=== PATIENT | female | born 1935 | race Caucasian/White ===

== ENCOUNTER 2019-12-21 11:22 | Observation (INO) | payer MEDICARE ==
[~2019-12-21] VITALS: Ht 170.2 cm; Wt 96.2 kg
[~2019-12-21 11:22] MED LIST: DICLOFENAC POTA50 MG PO; GLIMEPIRIDE4 MG PO; LASIX40 MG PO; LEVOTHYROXINE PO; MECLIZINE HCL25 MG PO; METFORMIN PO; METOPROLOL TART25 MG PO; MISOPROSTOL200 MCG PO; NEXIUM40 MG PO; PIOGLITAZONE45 MG PO; RAMIPRIL10 MG PO; SIMVASTATIN40 MG PO; ULTRAM50 MG PO; ZETIA10 MG PO
--- NOTE | 2019-12-21 12:52 | Diagnostic Imaging Report ---
Chest, 1 view, 12/21/2019. History: Chest pain. Comparison: None available. Findings: The cardiomediastinal silhouette and pulmonary vasculature are within normal limits for a portable exam. There is no focal consolidation or pleural effusion. A calcified granuloma is present in the right upper lobe. There are no acute osseous or soft tissue abnormalities. Impression: No acute cardiopulmonary abnormality. Signed by: Matthew Lema on 12/21/2019 12:49 PM
[2019-12-21 13:14] LABS: BASOPHILS # (AUTO) 0.1 (0.0-0.1); BASOPHILS % 0.7 % (0.0-1.0); EOSINOPHILS # (AUTO) 0.1 (0.0-0.4); EOSINOPHILS % 1.6 % (0.0-6.0); HEMATOCRIT 42.9 % (34.2-44.1); LYMPHOCYTES # (AUTO) 1.4 (1.0-3.2); LYMPHOCYTES % 20.1 % (18.0-39.1); MEAN CORPUSCULAR HEMOGLOBIN 26.2 pg (28-32); MEAN CORPUSCULAR HGB CONC 30.3 g/dL (31-35); MEAN CORPUSCULAR VOLUME 86.3 fL (81-99); MONOCYTES # (AUTO) 0.5 (0.2-0.8); NEUTROPHILS # (AUTO) 4.8 (2.1-6.9); NEUTROPHILS % 70.3 % (38.7-80.0); PLATELET COUNT 179 x10e3/uL (140-360); RED BLOOD COUNT 4.97 x10e6/uL (3.6-5.1); RED CELL DISTRIBUTION WIDTH 14.5 % (11.7-14.4)
[2019-12-21 13:28] LABS: INR 0.82; PROTHROMBIN TIME 11.8 seconds (11.9-14.5)
[2019-12-21 13:29] LABS: PARTIAL THROMBOPLASTIN TIME 26.3 seconds (23.8-35.5)
[2019-12-21 13:38] LABS: ALBUMIN 3.6 g/dL (3.5-5.0); ALBUMIN/GLOBULIN RATIO 1.2 (0.8-2.0); ANION GAP 17.4 mmol/L (8-16); POTASSIUM 4.4 mmol/L (3.5-5.1)
[2019-12-21 13:46] LABS: CREATINE KINASE MB 2.4 ng/mL (0-5.0)
--- NOTE | 2019-12-21 14:02 | Emergency Department Note ---
History of Present Illnes History of Present Illness Chief Complaint: Chest Pain History of Present Illness This is a 84 year old female sent to ed for eval reported abnormal EKG reading in office reading MT - pt denies cp sob n/v/d elizabeth dizziness NAD - reason for pcp visit today was c/o elevated blood sugar - reported pain to jaw while in clinic reports c[ for several days Chief Complaint Comment HERE FOR ABNORMAL EKG AT DR. GERONIMO OFFICE, WAS ADVISED TO COME OVER HERE RIGHT AWAY. DENIES CHEST PAIN OR SHORTNESS OF BREATH. Historian: Patient Arrival Mode: Car Onset (how long ago): day(s) (3 days ) Location: cp intermittent past 3 days Quality: denies cp sob dizziness elizabeth now Radiation: Denies non-radiation, Denies back, Denies neck, Denies extremity, Denies abdomen, Denies periumbilical, Denies flank, Denies proximal, Denies distal, Denies other Onset quality: unable to specify Duration (how long): day(s) (3 days) Timing of current episode: other (denies hcp sob n/v/d elizabeth dizziness) Progression: waxing and waning Context: Denies recent illness, Denies recent surgery, Denies recent immobilization, Denies recent travel, Denies trauma/injury, Denies new medicati ons, Denies hx of DVT/PE, Denies non-compliance w/ medications, Denies other Relieving factors: none Exacerbating factors: none Treatments prior to arrival: none Past Medical/Family History Physician Review I have reviewed the patient's past medical and family history. Any updates have been documented here. Past Medical History Recent Fever: No Clinical Suspicion of Infectio: No New/Unexplained Change in Ment: No Past Medical History: Hypertension, Diabetes, MT, Hypothyroidism, Hyperlipedemia Past Surgical History: Cholecysctectomy Social History Smoking Cessation: Unknown if ever smoked Counseling Performed: No Alcohol Use: None Any Illegal Drug Use: No TB Exposure/Symptoms: No Physically hurt or threatened: No Family History Family history of heart diseas: Yes Other Last Tetanus: UNK Last Flu: Y Last Pneumovax: Y Review of Systems Review of Systems Constitutional: Reports no symptoms EENTM: Reports no symptoms Cardiovascular: Reports no symptoms, Reports chest pain (intermittent denies cp now ) Respiratory: Reports no symptoms Gastrointestinal: Reports no symptoms Genitourinary: Reports no symptoms Musculoskeletal: Reports no symptoms Integumentary: Reports no symptoms Neurological: Reports no symptoms Psychological: Reports no symptoms Endocrine: Reports no symptoms Hematological/Lymphatic: Reports no symptoms Review of other systems All other systems reviewed and negative. This is a 84 year old female sent to ed for eval reported abnormal EKG reading in office reading MT - pt denies cp sob n/v/d elizabeth dizziness NAD - reason for pcp visit today was c/o elevated blood sugar - reported pain to jaw while in clinic reports c[ for several days Physical Exam Related Data Allergies: Coded Allergies: No Known Allergies (Unverified , 10/29/13) Triage Vital Signs Vital Signs Date Time Temp Pulse Resp B/P (MAP) Pulse Ox O2 Delivery O2 Flow Rate FiO2 12/21/19 11:59 98.4 68 16 157/78 94 Vital signs reviewed: Yes Physical Exam CONSTITUTIONAL Constitutional: Reports well-developed, Reports well-nourished HENT HENT: Reports normocephalic, Reports atraumatic, Reports oropharynx clear/moist, Reports nose normal HENT L/R: Reports left ext ear normal, Reports right ext ear normal EYES Eyes: Reports PERRL, Reports conjunctivae normal NECK Neck: Reports ROM normal PULMONARY Pulmonary: Reports effort normal, Reports breath sounds normal CARDIOVASCULAR This is a 84 year old female sent to ed for eval reported abnormal EKG reading in office reading MT - pt denies cp sob n/v/d elizabeth dizziness NAD - reason for pcp visit today was c/o elevated blood sugar - reported pain to jaw while in clinic reports cp for several days intermittent Cardiovascular: Reports regular rhythm, Reports heart sounds normal, Reports capillary refill normal, Reports normal rate, Reports murmur (2/6 systolic murmur noted / denies cp ), Reports other (denies cp sob n/v/d/ elizabeth dizziness NAD at this itime -This is a 84 year old female sent to ed for eval repo rted abnormal EKG reading in office reading MT - pt denies cp sob n/v/d elizabeth dizziness NAD - reason for pcp visit today was c/o elevated blood sugar - reported pain to jaw while in clinic reports c[ for several days ) GASTROINTESTINAL Abdominal: Reports soft, Reports nontender, Reports bowel sounds normal GENITOURINARY Genitourinary: Reports exam deferred SKIN Skin: Reports warm, Reports dry MUSCULOSKELETAL Musculoskeletal: Reports ROM normal NEUROLOGICAL Neurological: Reports alert, Reports oriented x 3, Reports no gross motor or sensory deficits PSYCHOLOGICAL Psychological: Reports mood/affect normal, Reports judgement normal Results Laboratory Result Diagram: 12/21/19 1250 12/21/19 1250 Laboratory Laboratory Tests Test 12/21/19 13:54 12/21/19 12:50 Urine Color Yellow (YELLOW) Urine Clarity Sl cloudy (CLEAR) Urine pH 5 (5 - 7) Urine Specific Combes >=1.030 (1.010-1.025) Urine Protein Negative (NEGATIVE) Urine Glucose (UA) 1+ (NEGATIVE) Urine Ketones Negative (NEGATIVE) Urine Blood Negative (NEGATIVE) Urine Nitrite Negative (NEGATIVE) Urine Bilirubin Negative (NEGATIVE) Urine Urobilinogen 0.2 mg/dL (0.2 - 1) Urine Leukocyte Esterase Negative (NEGATIVE) Urine RBC None /HPF (0-5) Urine WBC 0-5 /HPF (0-5) Urine Epithelial Cells Many /LPF (NONE) Urine Bacteria Many /HPF (NONE) White Blood Count 6.86 x10e3/uL (4.8-10.8) Red Blood Count 4.97 x10e6/uL (3.6-5.1) Hemoglobin 13.0 g/dL (12.0-16.0) Hematocrit 42.9 % (34.2-44.1) Mean Corpuscular Volume 86.3 fL (81-99) Mean Corpuscular Hemoglobin 26.2 pg (28-32) Mean Corpuscular Hemoglobin Concent 30.3 g/dL (31-35) Red Cell Distribution Width 14.5 % (11.7-14.4) Platelet Count 179 x10e3/uL (140-360) Neutrophils (%) (Auto) 70.3 % (38.7-80.0) Lymphocytes (%) (Auto) 20.1 % (18.0-39.1) Monocytes (%) (Auto) 7.0 % (4.4-11.3) Eosinophils (%) (Auto) 1.6 % (0.0-6.0) Basophils (%) (Auto) 0.7 % (0.0-1.0) Neutrophils # (Auto) 4.8 (2.1-6.9) Lymphocytes # (Auto) 1.4 (1.0-3.2) Monocytes # (Auto) 0.5 (0.2-0.8) Eosinophils # (Auto) 0.1 (0.0-0.4) Basophils # (Auto) 0.1 (0.0-0.1) Absolute Immature Granulocyte (auto 0.02 x10e3/uL (0-0.1) Prothrombin Time 11.8 seconds (11.9-14.5) Prothromb Time International Ratio 0.82 Activated Partial Thromboplast Time 26.3 seconds (23.8-35.5) Sodium Level 138 mmol/L (136-145) Potassium Level 4.4 mmol/L (3.5-5.1) Chloride Level 103 mmol/L (98-107) Carbon Dioxide Level 22 mmol/L (22-29) Anion Gap 17.4 mmol/L (8-16) Blood Urea Nitrogen 19 mg/dL (7-26) Creatinine 1.00 mg/dL (0.57-1.11) Estimat Glomerular Filtration Rate 53 ML/MIN (60-) BUN/Creatinine Ratio 19 (6-25) Glucose Level 219 mg/dL (74-118) Calcium Level 9.0 mg/dL (8.4-10.2) Total Bilirubin 0.4 mg/dL (0.2-1.2) Aspartate Amino Transf (AST/SGOT) 16 IU/L (5-34) Alanine Aminotransferase (ALT/SGPT) 16 IU/L (0-55) Alkaline Phosphatase 61 IU/L (40-150) Creatine Kinase 35 IU/L (29-168) Creatine Kinase MB 2.40 ng/mL (0-5.0) Troponin I 0.021 ng/mL (0-0.300) B-Type Natriuretic Peptide 76.0 pg/mL (0-100) Total Protein 6.6 g/dL (6.5-8.1) Albumin 3.6 g/dL (3.5-5.0) Globulin 3.0 g/dL (2.3-3.5) Albumin/Globulin Ratio 1.2 (0.8-2.0) Laboratory Tests Test 12/21/19 13:54 12/21/19 12:50 Urine Color Yellow (YELLOW) Urine Clarity Sl cloudy (CLEAR) Urine pH 5 (5 - 7) Urine Specific Combes >=1.030 (1.010-1.025) Urine Protein Negative (NEGATIVE) Urine Glucose (UA) 1+ (NEGATIVE) Urine Ketones Negative (NEGATIVE) Urine Blood Negative (NEGATIVE) Urine Nitrite Negative (NEGATIVE) Urine Bilirubin Negative (NEGATIVE) Urine Urobilinogen 0.2 mg/dL (0.2 - 1) Urine Leukocyte Esterase Negative (NEGATIVE) Urine RBC None /HPF (0-5) Urine WBC 0-5 /HPF (0-5) Urine Epithelial Cells Many /LPF (NONE) Urine Bacteria Many /HPF (NONE) White Blood Count 6.86 x10e3/uL (4.8-10.8) Red Blood Count 4.97 x10e6/uL (3.6-5.1) Hemoglobin 13.0 g/dL (12.0-16.0) Hematocrit 42.9 % (34.2-44.1) Mean Corpuscular Volume 86.3 fL (81-99) Mean Corpuscular Hemoglobin 26.2 pg (28-32) Mean Corpuscular Hemoglobin Concent 30.3 g/dL (31-35) Red Cell Distribution Width 14.5 % (11.7-14.4) Platelet Count 179 x10e3/uL (140-360) Neutrophils (%) (Auto) 70.3 % (38.7-80.0) Lymphocytes (%) (Auto) 20.1 % (18.0-39.1) Monocytes (%) (Auto) 7.0 % (4.4-11.3) Eosinophils (%) (Auto) 1.6 % (0.0-6.0) Basophils (%) (Auto) 0.7 % (0.0-1.0) Neutrophils # (Auto) 4.8 (2.1-6.9) Lymphocytes # (Auto) 1.4 (1.0-3.2) Monocytes # (Auto) 0.5 (0.2-0.8) Eosinophils # (Auto) 0.1 (0.0-0.4) Basophils # (Auto) 0.1 (0.0-0.1) Absolute Immature Granulocyte (auto 0.02 x10e3/uL (0-0.1) Prothrombin Time 11.8 seconds (11.9-14.5) Prothromb Time International Ratio 0.82 Activated Partial Thromboplast Time 26.3 seconds (23.8-35.5) Sodium Level 138 mmol/L (136-145) Potassium Level 4.4 mmol/L (3.5-5.1) Chloride Level 103 mmol/L (98-107) Carbon Dioxide Level 22 mmol/L (22-29) Anion Gap 17.4 mmol/L (8-16) Blood Urea Nitrogen 19 mg/dL (7-26) Creatinine 1.00 mg/dL (0.57-1.11) Estimat Glomerular Filtration Rate 53 ML/MIN (60-) BUN/Creatinine Ratio 19 (6-25) Glucose Level 219 mg/dL (74-118) Calcium Level 9.0 mg/dL (8.4-10.2) Total Bilirubin 0.4 mg/dL (0.2-1.2) Aspartate Amino Transf (AST/SGOT) 16 IU/L (5-34) Alanine Aminotransferase (ALT/SGPT) 16 IU/L (0-55) Alkaline Phosphatase 61 IU/L (40-150) Creatine Kinase 35 IU/L (29-168) Creatine Kinase MB 2.40 ng/mL (0-5.0) Troponin I 0.021 ng/mL (0-0.300) B-Type Natriuretic Peptide 76.0 pg/mL (0-100) Total Protein 6.6 g/dL (6.5-8.1) Albumin 3.6 g/dL (3.5-5.0) Globulin 3.0 g/dL (2.3-3.5) Albumin/Globulin Ratio 1.2 (0.8-2.0) Laboratory Tests Test 12/21/19 12:50 White Blood Count 6.86 x10e3/uL (4.8-10.8) Red Blood Count 4.97 x10e6/uL (3.6-5.1) Hemoglobin 13.0 g/dL (12.0-16.0) Hematocrit 42.9 % (34.2-44.1) Mean Corpuscular Volume 86.3 fL (81-99) Mean Corpuscular Hemoglobin 26.2 pg (28-32) Mean Corpuscular Hemoglobin Concent 30.3 g/dL (31-35) Red Cell Distribution Width 14.5 % (11.7-14.4) Platelet Count 179 x10e3/uL (140-360) Neutrophils (%) (Auto) 70.3 % (38.7-80.0) Lymphocytes (%) (Auto) 20.1 % (18.0-39.1) Monocytes (%) (Auto) 7.0 % (4.4-11.3) Eosinophils (%) (Auto) 1.6 % (0.0-6.0) Basophils (%) (Auto) 0.7 % (0.0-1.0) Neutrophils # (Auto) 4.8 (2.1-6.9) Lymphocytes # (Auto) 1.4 (1.0-3.2) Monocytes # (Auto) 0.5 (0.2-0.8) Eosinophils # (Auto) 0.1 (0.0-0.4) Basophils # (Auto) 0.1 (0.0-0.1) Absolute Immature Granulocyte (auto 0.02 x10e3/uL (0-0.1) Prothrombin Time 11.8 seconds (11.9-14.5) Prothromb Time International Ratio 0.82 Activated Partial Thromboplast Time 26.3 seconds (23.8-35.5) Sodium Level 138 mmol/L (136-145) Potassium Level 4.4 mmol/L (3.5-5.1) Chloride Level 103 mmol/L (98-107) Carbon Dioxide Level 22 mmol/L (22-29) Anion Gap 17.4 mmol/L (8-16) Blood Urea Nitrogen 19 mg/dL (7-26) Creatinine 1.00 mg/dL (0.57-1.11) Estimat Glomerular Filtration Rate 53 ML/MIN (60-) BUN/Creatinine Ratio 19 (6-25) Glucose Level 219 mg/dL (74-118) Calcium Level 9.0 mg/dL (8.4-10.2) Total Bilirubin 0.4 mg/dL (0.2-1.2) Aspartate Amino Transf (AST/SGOT) 16 IU/L (5-34) Alanine Aminotransferase (ALT/SGPT) 16 IU/L (0-55) Alkaline Phosphatase 61 IU/L (40-150) Creatine Kinase 35 IU/L (29-168) Creatine Kinase MB 2.40 ng/mL (0-5.0) Troponin I 0.021 ng/mL (0-0.300) B-Type Natriuretic Peptide 76.0 pg/mL (0-100) Total Protein 6.6 g/dL (6.5-8.1) Albumin 3.6 g/dL (3.5-5.0) Globulin 3.0 g/dL (2.3-3.5) Albumin/Globulin Ratio 1.2 (0.8-2.0) Laboratory Tests Test 12/21/19 12:50 White Blood Count 6.86 x10e3/uL (4.8-10.8) Red Blood Count 4.97 x10e6/uL (3.6-5.1) Hemoglobin 13.0 g/dL (12.0-16.0) Hematocrit 42.9 % (34.2-44.1) Mean Corpuscular Volume 86.3 fL (81-99) Mean Corpuscular Hemoglobin 26.2 pg (28-32) Mean Corpuscular Hemoglobin Concent 30.3 g/dL (31-35) Red Cell Distribution Width 14.5 % (11.7-14.4) Platelet Count 179 x10e3/uL (140-360) Neutrophils (%) (Auto) 70.3 % (38.7-80.0) Lymphocytes (%) (Auto) 20.1 % (18.0-39.1) Monocytes (%) (Auto) 7.0 % (4.4-11.3) Eosinophils (%) (Auto) 1.6 % (0.0-6.0) Basophils (%) (Auto) 0.7 % (0.0-1.0) Neutrophils # (Auto) 4.8 (2.1-6.9) Lymphocytes # (Auto) 1.4 (1.0-3.2) Monocytes # (Auto) 0.5 (0.2-0.8) Eosinophils # (Auto) 0.1 (0.0-0.4) Basophils # (Auto) 0.1 (0.0-0.1) Absolute Immature Granulocyte (auto 0.02 x10e3/uL (0-0.1) Prothrombin Time 11.8 seconds (11.9-14.5) Prothromb Time International Ratio 0.82 Activated Partial Thromboplast Time 26.3 seconds (23.8-35.5) Sodium Level 138 mmol/L (136-145) Potassium Level 4.4 mmol/L (3.5-5.1) Chloride Level 103 mmol/L (98-107) Carbon Dioxide Level 22 mmol/L (22-29) Anion Gap 17.4 mmol/L (8-16) Blood Urea Nitrogen 19 mg/dL (7-26) Creatinine 1.00 mg/dL (0.57-1.11) Estimat Glomerular Filtration Rate 53 ML/MIN (60-) BUN/Creatinine Ratio 19 (6-25) Glucose Level 219 mg/dL (74-118) Calcium Level 9.0 mg/dL (8.4-10.2) Total Bilirubin 0.4 mg/dL (0.2-1.2) Aspartate Amino Transf (AST/SGOT) 16 IU/L (5-34) Alanine Aminotransferase (ALT/SGPT) 16 IU/L (0-55) Alkaline Phosphatase 61 IU/L (40-150) Creatine Kinase 35 IU/L (29-168) Creatine Kinase MB 2.40 ng/mL (0-5.0) Troponin I 0.021 ng/mL (0-0.300) B-Type Natriuretic Peptide 76.0 pg/mL (0-100) Total Protein 6.6 g/dL (6.5-8.1) Albumin 3.6 g/dL (3.5-5.0) Globulin 3.0 g/dL (2.3-3.5) Albumin/Globulin Ratio 1.2 (0.8-2.0) Lab results reviewed: Yes Imaging Impressions Procedure: [id number] DX/CHEST SINGLE (PORTABLE) Exam Date: 12/21/19 Exam Time: 1215 REPORT STATUS: Signed Chest, 1 view, 12/21/2019. History: Chest pain. Comparison: None available. Findings: The cardiomediastinal silhouette and pulmonary vasculature are within normal limits for a portable exam. There is no focal consolidation or pleural effusion. A calcified granuloma is present in the right upper lobe. There are no acute osseous or soft tissue abnormalities. Impression: No acute cardiopulmonary abnormality. Signed by: Matthew Lema on 12/21/2019 12:49 PM Dictated By: MATTHEW LEMA MD [id number] Transcribed By: WESTON on 12/21/19 1249 COPY TO: KNOG ROGERS MD~ Procedures 12 Lead ECG Interpretation ECG Interpretation : Energy Consultant: Interpreted by ED physician Date: Dec 21, 2019 Time: 11:55 Prior ECG tracings: reviewed Rhythm: sinus rhythm Rate: normal BPM: 68 QRS axis: right T wave inversion: V1, V2 Assessment & Plan Medical Decision Making MDM This is a 84 year old female sent to ed for eval reported abnormal EKG reading in office reading [place] - pt denies cp sob n/v/d elizabeth dizziness NAD - reason for pcp visit today was c/o elevated blood sugar - reported pain to jaw while in clinic reports cp for several days D/D MT/STEMI/ NON STEMI/ CP pt presented w/ abnormal ekg from pcp office - ekg repeated in triage no acute findings noted - pt denies cp sob n/v/d elizabeth dizziness asymptomatic non toxic afebrile NAD at this time Reassessment Reassessment discussed lab ekg cxr results plan of care and need for admit noted bs per bmp 219 spoke w/ Dr Aquino will admit Spoke w/ Dr Bowser will consult Assessment & Plan Final Impression: (1) Diabetes (2) Chest pain Depart Disposition: ADMITTED Last Vital Signs Date Time Temp Pulse Resp B/P (MAP) Pulse Ox O2 Delivery O2 Flow Rate FiO2 12/21/19 13:46 62 19 154/67 100 12/21/19 12:37 98.8 Home Meds Reported Medications Ramipril (RAMIPRIL) 10 Mg Capsule, 10 MG PO DAILY 12/16/13 Ezetimibe (ZETIA) 10 Mg Tablet, 10 MG PO HS 12/16/13 Metoprolol Tartrate (METOPROLOL TARTRATE) 25 Mg Tablet, 25 MG PO BID, TAB 12/16/13 Pioglitazone Hcl (PIOGLITAZONE) 45 Mg Tablet, 45 MG PO DAILY 12/16/13 Misoprostol (MISOPROSTOL) 200 Mcg Tablet, 200 MCG PO BID 12/16/13 Tramadol Hcl (ULTRAM) 50 Mg Tablet, 50 MG PO BID, TAB 12/16/13 Diclofenac Potassium (DICLOFENAC POTASSIUM) 50 Mg Tablet, 50 MG PO BID 12/16/13 [Levothyroxine] No Conflict Check, 25 MCG PO DAILY 12/16/13 Esomeprazole Magnesium (NEXIUM) 40 Mg Capsule.dr, 40 MG PO DAILY 12/16/13 Simvastatin (SIMVASTATIN) 40 Mg Tablet, 40 MG PO DAILY, TAB 12/16/13 Glimepiride (GLIMEPIRIDE) 4 Mg Tablet, 4 MG PO DAILY 12/16/13 Furosemide (LASIX) 40 Mg Tablet, 40 MG PO DAILY, #30 TAB 12/16/13 Meclizine Hcl (MECLIZINE HCL) 25 Mg Tablet, 25 MG PO PRN 12/16/13 [Metformin] No Conflict Check, 1000 MG PO BID 12/16/13 KONG ROGERS MD Dec 21, 2019 14:02
--- NOTE | 2019-12-21 14:07 | NUR ---
urine collected and sent to lab.
[2019-12-21 14:17] LABS: CLARITY,URINE SL CLOUDY (CLEAR); COLOR,URINE YELLOW (YELLOW)
[2019-12-21 14:18] LABS: BILIRUBIN,URINE NEGATIVE (NEGATIVE); KETONES,URINE NEGATIVE (NEGATIVE); LEUKOCYTE ESTERASE ,URINE NEGATIVE (NEGATIVE); NITRITE,URINE NEGATIVE (NEGATIVE); PROTEIN,URINE DIPSTICK NEGATIVE (NEGATIVE); URINE UROBILINOGEN 0.2 mg/dL (0.2 - 1)
[2019-12-21 14:41] LABS: BACTERIA,URINE MANY /HPF; EPITHELIAL CELLS,URINE MANY /LPF; WBC,URINE (MAN) 0-5 /HPF (0-5)
--- NOTE | 2019-12-21 15:01 | NUR ---
pt. to be admitted for chest pain.
--- NOTE | 2019-12-21 15:35 | NUR ---
called placed to dr. persaud's office for home med list
[2019-12-21] MEDS ORDERED: DEXTROSE 50% SYRINGE 50 ML IV PRN (16:15)
[2019-12-21] MEDS ORDERED: MORPHINE SULFATE 2 MG/ML SYR 1ML IV PRN (16:15)
[2019-12-21] MEDS ORDERED: ONDANSETRON HCL INJ 2MG/ML 2ML 2 MG/ML VIAL IV PRN (16:15)
[2019-12-21] MEDS ORDERED: NITROGLYCERIN 0.4 MG SUBL SL PRN (16:15)
--- OUTSIDE RECORDS SUMMARY | 2019-12-21 16:51 | XMS REPORT | Continuity of Care Document ---
Author Author [facility] Organization [facility] Address [address] [place] [place] [phone] Phone Unavailable Care Team Providers Care Life Cycle Assessment Analyst Name Role Phone Sukhi ROGERS Attphys Unavailable Problems This patient has no known problems. Allergies, Adverse Reactions, Alerts This patient has no known allergies or adverse reactions. Medications This patient has no known medications. Procedures This patient has no known procedures. Results Test Description Test Time Test Comments Results Result Comments Source CHEST SINGLE (PORTABLE) 2019-12-21 12:48:00 [place] [address] Patient Name: SANGITA MCCANN MR #: [id number] : 1935 Age/Sex: 84/F Req #: [id number] Adm Physician: Ordered by: KONG ROGERS MD Report #: [id number] Location: ER Room/Bed: Procedure: [id number] DX/CHEST SINGLE (PORTABLE) Exam Date: 12/21/19 Exam Time: 1215 REPORT STATUS: Signed Chest, 1 view, 12/21/2019. History: Chest pain. Comparison: None available. Findings: The cardiomediastinal silhouette and pulmonary vasculature are within normal limits for a portable exam. There is no focal consolidation or pleural effusi on. A calcified granuloma is present in the right upper lobe. There are no acute osseous or soft tissue abnormalities. Impression: No acute cardiopulmonary abnormality. Signed by: Chip Lema on 12/21/2019 12:49 PM Dictated By: CHIP LEMA MD 124 Transcribed By: WESTON on 12/21/191248 COPY TO: KONG ROGERS MD
[2019-12-21] MEDS ORDERED: TRAZODONE HCL50 MG PO (17:04)
[2019-12-21] MEDS ORDERED: ASPIR 8181 MG (17:04)
[2019-12-21] MEDS ORDERED: CRESTOR10 MG (17:04)
[2019-12-21] MEDS ORDERED: ZOLOFT50 MG PO (17:04)
[2019-12-21] MEDS: INSULIN LISPRO 100 UNIT/1 ML 3ML VIAL SQ SCH ×2 (17:59→21:00)
--- NOTE | 2019-12-21 18:40 | NUR ---
PATIENT RECEIVED FROM ER PER STRETCHER. ALERT AND VERBALLY RESPONSIVE. SKIN WARM AND DRY TO TOUCH. DENIED PAIN OR DISCOMFORT AT THIS TIME. ASSISTED TO THE RESTROOM AND BACK TO BED, VOIDED LARGE AMOUNT OF YELLOW URINE. TELEMETRY BOX [address], YELLOW SOCKS APPLIED. ALL PERSONAL ITEMS CLOSE TO PATIENT. BED IN LOWER POSITION, CALL LIGHT AT REACH. INSTRUCTED TO CALL FOR ASSISTANCE NEEDED.
[2019-12-21] MEDS ORDERED: CLOPIDOGREL BISULFATE 75 MG TAB PO ONE (19:50)
[2019-12-21 20:00] VITALS: BP 172/63
[2019-12-21] MEDS: FAMOTIDINE 20 MG/2 ML VIAL IV SCH (21:00)
[2019-12-21 22:14] LABS: CREATINE KINASE MB 2.5 ng/mL (0-5.0)
--- NOTE | 2019-12-21 22:15 | NUR ---
Received report from AM nurse. Walking rounds completed.
[2019-12-22] VITALS (7 sets, daily range): BP systolic 152–176; BP diastolic 75–84
--- NOTE | 2019-12-22 01:56 | Consultation ---
DATE OF CONSULTATION: 12/21/2019 Cardiac Consultation REASON FOR CONSULTATION: Poorly historian. The patient having chest pain. HISTORY OF PRESENT ILLNESS: An 84-year-old lady, who is known with longstanding history of diabetes mellitus, hypertension, strong family history of coronary artery disease, hypercholesteremia, varicose veins, degenerative joint disease, and right hip fracture in February 2016, was complicated by postop pulmonary embolism. The patient followed in our office. She keeps complaining of chest pain. It is with typical and atypical characteristic. It is mid epigastric lower retrosternal. Not related to activity. The patient having this problem back on and off. The patient is supposed to see GI Service, but did not see any GI Service. Her last ischemic evaluation was in 2015. The patient reluctant about having any stress test or any other cardiac evaluation and she is happy with medication. She is followed by her PCP, Dr. Webster and she saw him and her medications are adjusted because "her diabetes is under poor control." The patient does have this episode of chest pain where she is really truly poorly historian. She is supposed to have blood work today in his office and to see him, but she told them about the chest pain, so they sent her immediately to the emergency room. I visited with her. She is going back and forth with her history. We called her daughter, Mary, and we discussed the case also with her and she got involved. The patient definitely having chest pain. It is very, very plausible to be anginal in nature, although the patient thinks probably there are some GI component. This pain is of two types, probably one as on exertion with characterized by easy fatigability, shortness of breath on exertion, chest tightness, and the second is occasional burn and it happened when she is in bed. Regardless, the patient continued to have this pain and she is here for evaluation. HOME MEDICATIONS: Including aspirin 81 mg a day, Crestor 10 mg a day, metoprolol succinate 25 mg a day, ramipril 5 mg a day, levothyroxine 25 mcg a day, glimepiride one tablet b.i.d., Protonix 40 mg a day, Zoloft 100 mg a day, gabapentin 300 mg at bedtime, trazodone 100 mg a day, VESIcare 5 mg a day. The patient told me she started on injection by Dr. Webster for diabetes. PAST MEDICAL HISTORY: 1. Diabetes mellitus since 2002. 2. Hypertension. 3. Hypercholesteremia. 4. Pulmonary embolism following right hip surgery in March 2016. 5. Varicose vein. 6. Sleep apnea. 7. Degenerative joint disease of the back. 8. Peripheral neuropathy. 9. Decreased hearing. 10. Right hip fracture. 11. The patient is a little bit forgetful. 12. Cholecystectomy. 13. Left knee surgery. 14. Tubal ligation. SOCIAL HISTORY: She is a . She is nonsmoker. She is non-alcohol drinker. She is retired from [employer]. FAMILY HISTORY: Mother at age 76 of complication of diabetes mellitus and myocardial infarction. Father at age with myocardial infarction and he was hypertensive. Nine siblings and five children, four brothers of coronary artery disease. Even her son himself had coronary artery bypass surgery. REVIEW OF SYSTEMS: GENERAL: No fever, no chills. No weight loss. No weight gain. HEENT: Decreased hearing. PULMONARY: As per History and Physical. CARDIAC: As per History and Physical. GI: No hematemesis, no melena, but GERD. HEMATOLOGY: Easy bruising, but no bleeding. : Frequency and incontinence. No dysuria. MUSCULOSKELETAL: Back pain, knee pain, hand pain. Peripheral vascular swelling. NEUROLOGICAL: The patient is a little bit forgetful. She uses walker for ambulation. PHYSICAL EXAMINATION: VITAL SIGNS: Height of 5 feet 7 inches, weight of 210 pounds, blood pressure 125/80, heart rate of 60, respiratory rate of 18. HEENT: Pupils are reactive. Decreased hearing is noted. NECK: No elevation of jugular venous pulsation. No thyromegaly. CHEST: Decreased lung expansion, but clear to auscultation and percussion. HEART: PMI 5th left intercostal space. Normal first and second heart sound. ABDOMEN: Soft with good bowel sounds. No organomegaly. EXTREMITIES: No cyanosis, no clubbing, no edema. Varicose veins are noted. NEUROLOGIC: Awake, alert, and oriented. Able to move all extremities. LABORATORY DATA: First set of cardiac enzymes normal. BNP is normal. EKG, no acute changes. Chest x-ray by report, no major abnormality. IMPRESSION AND PLAN: 1. Poorly historian. 2. Diabetes mellitus with severe end-organ damage on many years duration. 3. Chest pain with several cardiac risk factors very plausible to be angina. 4. Gastroesophageal reflux disease. 5. Dyspnea on exertion. 6. Diabetes mellitus, poorly controlled. 7. Past history of pulmonary embolism. 8. Venous insufficiency of the lower extremities. 9. Degenerative joint disease. We have a lengthy discussion with the patient and her daughter. We will then schedule the patient for a nuclear cardiac stress test tomorrow. We are going to rule her out for myocardial infarction. We will check an echocardiogram. Case discussed and explained. Questions are answered. MD RIGO Carballo/KANDIL /[id number]
[2019-12-22 06:54] LABS: BASOPHILS # (AUTO) 0.1 (0.0-0.1); BASOPHILS % 0.7 % (0.0-1.0); EOSINOPHILS # (AUTO) 0.2 (0.0-0.4); EOSINOPHILS % 2.1 % (0.0-6.0); HEMATOCRIT 43.4 % (34.2-44.1); HEMOGLOBIN 13.5 g/dL (12.0-16.0); LYMPHOCYTES % 22.6 % (18.0-39.1); MEAN CORPUSCULAR HEMOGLOBIN 25.9 pg (28-32); MEAN CORPUSCULAR HGB CONC 31.1 g/dL (31-35); MEAN CORPUSCULAR VOLUME 83.1 fL (81-99); MONOCYTES # (AUTO) 0.8 (0.2-0.8); MONOCYTES % 8.7 % (4.4-11.3); NEUTROPHILS # (AUTO) 5.7 (2.1-6.9); NEUTROPHILS % 65.6 % (38.7-80.0); PLATELET COUNT 204 x10e3/uL (140-360); RED BLOOD COUNT 5.22 x10e6/uL (3.6-5.1); RED CELL DISTRIBUTION WIDTH 14.7 % (11.7-14.4)
--- NOTE | 2019-12-22 07:10 | NUR ---
RECEIVED PT ON BEDSIDE ROUNDS. SITTING IN CHAIR READY FOR STRESS TEST
[2019-12-22 07:29] LABS: ANION GAP 15.5 mmol/L (8-16); BLOOD UREA NITROGEN 18 mg/dL (7-26); BUN/CREATININE RATIO 21 (6-25); CALCIUM 9.6 mg/dL (8.4-10.2); CARBON DIOXIDE 25 mmol/L (22-29); CHLORIDE 103 mmol/L (98-107); CHOL/HDL RATIO 3.8 (3.0-3.6); CHOLESTEROL 188 MD/DL (0-199); CREATININE, SERUM 0.86 mg/dL (0.57-1.11); EST GLOMERULAR FILTRATION RATE > 60 ML/MIN (60-); GLUCOSE 188 mg/dL (74-118); HDL CHOLESTEROL 49 MG/DL (40-60); LDL CHOLESTEROL 107 MG/DL (60-130); POTASSIUM 4.5 mmol/L (3.5-5.1); SODIUM 139 mmol/L (136-145); TRIGLYCERIDES 158 MG/DL (0-149)
[2019-12-22 07:49] LABS: CREATINE KINASE MB 1.2 ng/mL (0-5.0)
[2019-12-22] MEDS: INSULIN LISPRO 100 UNIT/1 ML 3ML VIAL SQ SCH ×4 (08:30→20:27)
[2019-12-22] MEDS: FAMOTIDINE 20 MG/2 ML VIAL IV SCH ×2 (09:00→20:28)
[2019-12-22] MEDS: CLOPIDOGREL BISULFATE 75 MG TAB PO SCH (09:00)
[2019-12-22] MEDS: METOPROLOL SUCCINATE 25 MG TAB XL PO SCH (09:00)
[2019-12-22] MEDS: ASPIRIN 81 MG ENTERIC COATED PO SCH (09:00)
[2019-12-22] MEDS: RAMIPRIL 5 MG CAP PO SCH (09:00)
--- NOTE | 2019-12-22 11:10 | NUR ---
PT DOWN FOR STRESS TEST.
[2019-12-22] MEDS ORDERED: REGADENOSON 0.4 MG/5 ML SYR IV ONE (11:27)
[2019-12-22] MEDS ORDERED: INSULIN LISPRO 100 UNIT/1 ML 3ML VIAL SQ SCH (11:30)
[2019-12-22] MEDS ORDERED: DEXTROSE 50% SYRINGE 50 ML IV PRN (11:30)
[2019-12-22] MEDS ORDERED: HYDRALAZINE HCL 20 MG/ML VIAL IV PRN (11:45)
[2019-12-22] MEDS ORDERED: ACETAMINOPHEN 325 MG TAB PO PRN (11:45)
[2019-12-22] MEDS ORDERED: TRAMADOL HCL 50 MG TAB PO PRN (11:45)
[2019-12-22] MEDS ORDERED: ONDANSETRON HCL INJ 2MG/ML 2ML 2 MG/ML VIAL IV PRN (11:45)
--- NOTE | 2019-12-22 13:40 | NUR ---
PT BACK FROM STRESS TEST
--- NOTE | 2019-12-22 14:15 | NUR ---
pt has [facility] prior to admission and is willing to reinstate with an order upon discharge.
--- NOTE | 2019-12-22 16:30 | NUR ---
PT BS WAS 253; 8 UNITS OF INSULIN GIVEN ORDERED. DAUGHTER AT BEDSIDE. DR ANDINO TO SEE PT AND SPOKE WITH FAMILY
--- NOTE | 2019-12-22 18:30 | NUR ---
NO CHANGES AT THIS TIME IN PT STATUS.
--- NOTE | 2019-12-22 20:00 | NUR ---
Received report from AM nurse. Walking rounds completed.
[2019-12-22] MEDS ORDERED: SIMVASTATIN 20 MG TAB PO SCH (21:00)
[2019-12-22] MEDS ORDERED: EZETIMIBE 10 MG TAB PO SCH (21:00)
[2019-12-22] MEDS ORDERED: SIMVASTATIN 40 MG TAB PO SCH (21:00)
[2019-12-23] VITALS: BP 135/61
--- NOTE | 2019-12-23 | NUR ---
Patient sitting at side of bed. No c/o pain or discomfort at this time. Continue monitor.
[2019-12-23 04:00] VITALS: BP_SYST 156; BP_DIAS 84; BP_DIAS 87
--- NOTE | 2019-12-23 05:00 | NUR ---
Patient c/o pain SIMON and nausea. Pain and nausea meds given as ordered by MD. Continue monitor. Patient had 50cc of yellow emesis. Cool towel applied to forehead. Patient resting quitly at this time.
[2019-12-23] MEDS ORDERED: LEVOTHYROXINE SODIUM 25 MCG TABLET PO SCH (06:00)
[2019-12-23 06:04] LABS: BASOPHILS % 0.4 % (0.0-1.0); EOSINOPHILS % 0.3 % (0.0-6.0); HEMATOCRIT 41.5 % (34.2-44.1); HEMOGLOBIN 12.7 g/dL (12.0-16.0); LYMPHOCYTES # (AUTO) 0.8 (1.0-3.2); LYMPHOCYTES % 8.2 % (18.0-39.1); MEAN CORPUSCULAR HEMOGLOBIN 26.5 pg (28-32); MEAN CORPUSCULAR HGB CONC 30.6 g/dL (31-35); MEAN CORPUSCULAR VOLUME 86.5 fL (81-99); MONOCYTES # (AUTO) 0.4 (0.2-0.8); NEUTROPHILS # (AUTO) 7.9 (2.1-6.9); NEUTROPHILS % 86.8 % (38.7-80.0); PLATELET COUNT 154 x10e3/uL (140-360); RED CELL DISTRIBUTION WIDTH 14.6 % (11.7-14.4)
[2019-12-23 06:41] LABS: ALANINE AMINOTRANSFERASE 13 IU/L (0-55); ALBUMIN 3.5 g/dL (3.5-5.0); ALBUMIN/GLOBULIN RATIO 1.3 (0.8-2.0); ALKALINE PHOSPHATASE 60 IU/L (40-150); ANION GAP 16.9 mmol/L (8-16); BLOOD UREA NITROGEN 15 mg/dL (7-26); BUN/CREATININE RATIO 18 (6-25); CALCIUM 9.1 mg/dL (8.4-10.2); CARBON DIOXIDE 23 mmol/L (22-29); CHLORIDE 101 mmol/L (98-107); CREATININE, SERUM 0.85 mg/dL (0.57-1.11); EST GLOMERULAR FILTRATION RATE > 60 ML/MIN (60-); GLUCOSE 267 mg/dL (74-118); POTASSIUM 3.9 mmol/L (3.5-5.1); SODIUM 137 mmol/L (136-145)
--- NOTE | 2019-12-23 07:05 | NUR ---
RECEIVED PT RESTING QUIETLY EASILY AWAKEN. NO NAUSEA AT THIS TIME.
[2019-12-23 08:19] VITALS: BP 177/79
[2019-12-23] MEDS ORDERED: SERTRALINE HCL 50 MG TAB PO SCH (09:00)
[2019-12-23] MEDS: RAMIPRIL 5 MG CAP PO SCH (09:00)
[2019-12-23] MEDS: FAMOTIDINE 20 MG/2 ML VIAL IV SCH (09:00)
[2019-12-23] MEDS: ASPIRIN 81 MG ENTERIC COATED PO SCH (09:00)
[2019-12-23] MEDS ORDERED: LEVOTHYROXINE 25 MCG PO SCH (09:00)
[2019-12-23] MEDS: METOPROLOL SUCCINATE 25 MG TAB XL PO SCH (09:00)
[2019-12-23] MEDS: CLOPIDOGREL BISULFATE 75 MG TAB PO SCH (09:00)
[2019-12-23] MEDS ORDERED: FUROSEMIDE 40 MG TAB PO SCH (09:00)
[2019-12-23] MEDS: INSULIN LISPRO 100 UNIT/1 ML 3ML VIAL SQ SCH ×2 (09:39→11:30)
--- NOTE | 2019-12-23 10:25 | NUR ---
CARDIOLOGY PATIENT FROM THEIR STANDPOINT PT CAN BE DC.
[2019-12-23] MEDS ORDERED: NITROSTAT0.4 MG SL (11:44)
[2019-12-23] MEDS ORDERED: PLAVIX75 MG PO (11:44)
[2019-12-23] MEDS ORDERED: TOPROL XL25 MG PO (11:44)
[2019-12-23 12:00] VITALS: BP 145/86
--- NOTE | 2019-12-23 14:03 | Myoview Stress Test ---
DATE OF STUDY: 12/21/2019 19:15:00 Stress Test - Lexiscan PROCEDURE PERFORMED: Lexiscan nuclear stress test. INDICATION FOR STUDY: Chest pain and inability to exercise. This is to be associated with dictation/study #[id number]. TECHNICAL DETAILS: After risks, benefits, pros and cons of today's Lexiscan nuclear stress test explained to the patient, the patient agreed to proceed. She was brought down to the stress lab where she received a Lexiscan dose 0.4 mg intravenously followed by an 11 mCi dose of technetium tetrofosmin intravenously. Resting heart rate went from a baseline of 73 beats per minute to a maximum of 92 beats per minute. Blood pressure went from baseline of 158/90 to 185/86 with appropriate hemodynamic response. Underlying EKG revealed normal sinus rhythm with nonspecific T-wave inversions in inferior leads and with Lexiscan infusion there were no ischemic EKG changes or symptoms. After 25 minutes, patient was then taken to the SPECT camera for resting myocardial perfusion imaging. After waiting for appropriate amount of time, patient was then brought back to the nuclear lab where she received 33 millicuries of technetium-99m tetrofosmin intravenously and after 40 minutes patient was then taken to the SPECT camera for resting myocardial perfusion imaging. FINDINGS: 1. Stress myocardial perfusion imaging reveals a moderate area of decreased tracer uptake in the lateral and inferior lateral haque. 2. Resting myocardial perfusion imaging reveals largely normal tracer uptake. 3. The following gated measurements were obtained. End-diastolic volume 63 mL, end systolic volumes 11 mL, calculated left ventricular ejection fraction is 82% with normal wall motion. CONCLUSIONS: 1. Abnormal myocardial perfusion imaging study revealing at least moderate size decreased radiotracer uptake in the lateral inferolateral wall concerning for ischemia as this appears to be completely reversible and not present at resting image. 2. Normal left ventricular function with calculated ejection fraction of 82%. 3. Overall findings of the stress test are compatible with at least a moderate risk stress test. MD JACKIE Michael/BRAD /[id number]
--- NOTE | 2019-12-23 15:00 | NUR ---
PT GIVEN HER DISCHARGE INSTRUCTION ALONG WITH HER PRESCRIPTION DAUGHTER AT BEDSIDE. IV REMOVED EARLIER.
--- NOTE | 2019-12-23 15:30 | NUR ---
PT ACCOMPANIED OUT BY STAFF VIA WC. DAUGHTER AT SIDE
[2019-12-23] MEDS ORDERED: TRAZODONE HCL 50 MG TAB PO SCH (21:00)
--- NOTE | 2019-12-24 05:11 | Discharge Summary ---
CONSULTING PHYSICIAN: Stoney Bowser MD, with Cardiology. CHIEF COMPLAINT: Chest pain. HISTORY OF PRESENT ILLNESS: The patient is an 84-year-old female admitted with complaints of abnormal EKG at the PCP office. She complained of intermittent chest pain and followed a rn cardiovascular on outpatient already. She was taken to the [facility] for stress test. PAST MEDICAL HISTORY: Includes type 2 diabetes mellitus, hypertension, hyperlipidemia, PE, obstructive sleep apnea, chronic back pain, and hypothyroidism. PAST SURGICAL HISTORY: Tubal ligation, right hip surgery, cholecystectomy, and left knee surgery. FAMILY HISTORY: Mother had diabetes mellitus, myocardial infarction in mother, father and son. SOCIAL HISTORY: Noncontributory. ALLERGIES: NO KNOWN ALLERGIES. ADMITTING DIAGNOSES: 1. Chest pain. 2. Type 2 diabetes mellitus. 3. Hypertension. 4. Chronic pain. 5. Hyperlipidemia. 6. Hypothyroidism. 7. Obesity with BMI of 33.2. DISCHARGE DIAGNOSES: 1. Chest pain. 2. Type 2 diabetes mellitus. 3. Hypertension. 4. Chronic pain. 5. Hyperlipidemia. 6. Hypothyroidism. 7. Obesity with BMI of 33.2. HOSPITAL COURSE: She had an echocardiogram on 12/22/2019, with an estimated ejection fraction of 55%, AV thickening, trace AI and tricuspid regurgitation. A 12-lead EKG on December 21, showed normal sinus rhythm with a ventricular rate of 69. On December 20, she had a 12-lead EKG which showed right ventricular hypertrophy, ventricular rate 68, normal sinus rhythm. On admission; WBC 6.86, hemoglobin 13, hematocrit 42.9, and platelets 179. Sodium 138, potassium 4.4, chloride 103, CO2 of 22, BUN 19, creatinine 1.0, estimated GFR 53, glucose 219, and calcium 9.0. LFTs were within normal limits. B-type natriuretic peptide 76. Cardiac enzymes were within normal limits. Triglycerides 158, cholesterol 188, LDL 107, and HDL 49. Second creatine kinase was 28, second CK-MB 2.5. Troponin I 0.030. Third set of cardiac biomarkers; creatine kinase 36, CK-MB 1.2, troponin I 0.030. Hemoglobin A1c was 8.3%. Urinalysis showed 1+ glucose and many bacteria. Stool for occult blood was negative. Coronavirus collected 12/21 is pending. Final urine culture showed mixed leti contamination. Chest x-ray on 12/20 showed no acute cardiopulmonary abnormality. Today lab shows glucose 267, otherwise chemistry essentially normal. WBC 9.1, hemoglobin 12.7, hematocrit 41.5, and platelets 154. Telemetry shows normal sinus rhythm with heart rate 68. Subjectively, patient currently has minimal complaints. Last night, she did have nausea, vomiting, and diarrhea. She had 3 diarrhea stools last night and had chills. The patient is to follow up with Cardiology on Friday. We will send her home today with prescriptions for Toprol-XL 25 mg p.o. daily, Nitrostat p.r.n. for chest pain and Plavix 75 mg p.o. daily. Continue ADA diet. Activity level as tolerated. Follow up with PCP, Dr. Jose Webster in 1-2 weeks. Follow up with Dr. Bowser on Friday. Temperature 97.5, heart rate 77, blood pressure 177/79, respirations 16, and oxygen saturation 94%. Dictated by Shashi Hansen NP MD LOW BandaP/MODL /[id number]
== END 2019-12-23 15:30 | disposition home or self-care (01) ==
LOC: ER 11:22 → ERHOLD 16:08 → MED/SURG3 18:25
PROVIDERS: ADMIT Internal Medicine; ATTEND Internal Medicine
DX: R07.9 Chest pain, unspecified (principal); E11.9 Type 2 diabetes mellitus without complications; G89.29 Other chronic pain; E78.5 Hyperlipidemia, unspecified; E03.9 Hypothyroidism, unspecified; E66.9 Obesity, unspecified; Z68.33 Body mass index [BMI] 33.0-33.9, adult; G47.33 Obstructive sleep apnea (adult) (pediatric); Z86.711 Personal history of pulmonary embolism; Z79.01 Long term (current) use of anticoagulants; M47.9 Spondylosis, unspecified; E11.40 Type 2 diabetes mellitus with diabetic neuropathy, unspecified
CPT/HCPCS: 36415 ×3; 71045; 78452; 80048; 80053 ×2; 80061; 81001; 82270; 82550 ×2; 82553 ×2; 82948 ×3; 83036; 83880; 84443; 84484 ×2; 85025 ×3; 85610; 85730; 87086; 87635; 93005 ×2; 93017; 93306; 99284; A9502; G0378 ×3; J0360; J2405; J2785